=== PATIENT | female | born 1995 | race Caucasian/White ===

== ENCOUNTER 2017-06-14 10:11 | Inpatient (IN) ==
[2017-06-14] MEDS ORDERED: Famotidine 20 MG/2 ML VIAL IVP PRN (11:28)
[2017-06-14] MEDS ORDERED: Naloxone 0.4 MG/ML INJ IVP PRN (11:28)
[2017-06-14] MEDS ORDERED: Metoclopramide 10 MG/2 ML VIAL IVP PRN (11:35)
[2017-06-14] MEDS ORDERED: Ringers Solution, Lactated 1,000 ML IVC SCH (11:45)
[2017-06-14 11:53] LABS: Basophils # 0.1 K/mcL (0.0-0.2); Basophils % 0.6 %; Eosinophils # 0.2 K/mcL (0.0-0.6); Eosinophils % 1.3 %; Hematocrit 40.6 % (35.3-44.9); Hemoglobin 13.7 g/dL (11.5-15.4); Immature Granulocytes % 2.2 % (0-4); Lymphocytes % 14.7 %; Mean Corpuscular HGB Conc 33.7 g/dL (31.6-35.5); Mean Corpuscular Hemoglobin 28.2 pg (28.0-33.3); Mean Corpuscular Volume 83.7 fL (83.0-100.0); Monocytes # 1.1 K/mcL (0.0-1.3); Monocytes % 7.7 %; Neutrophils # 10.2 K/mcL (1.6-8.9); Platelet Count 239 K/mcL (140-400); Red Blood Count 4.85 M/mcL (3.82-4.97); Red Cell Distribution Width 14.8 % (11.5-14.5); Segmented Neutrophils % 73.5 %
[2017-06-14] MEDS ORDERED: Oxytocin 20 units/ LR 1000 mL 20 UNIT/1,000 ML BAG IVC SCH (12:30)
--- NOTE | 2017-06-14 12:33 | OB/GYN History & Physical ---
Date of Encounter: 06/14/17 Time of Encounter: 12:30 Assessment and Plan (1) 39 weeks gestation of Current visit: Yes Status: Acute Admit to labor and delivery for elective IOL GBS negative Start pitocin for induction 2mu/min increase by 2mu/min per policy Patient may have nubain and/or epidural for pain control when requested Consider AROM for augmentation Anticipate vaginal delivery POC per consult with Dr Aguero (2) Rubella non-immune status, antepartum Current visit: Yes Status: Acute Patient to have MMR prior to discharge to booster immunity. History of Present Illness Chief complaint: Elective IOL HPI: Ms. Limon is a 22 year old at 39 weeks and 4 days that arrives to labor and delivery for a scheduled elective IOL. She has a had a normal course with obesity as her only risk factor. Her GBS is negative. Her blood type is O+. She is Rubella non-immune and Varicella immune. She is RPR, Hepatitis B, and is HIV negative. Her Gonorrhea and Chlamydia DNA screening were negative in the December of 2016. Past Med Surg Social Fam HX - Past Medical History Medical history: no medical history Psychiatric history: no psych history - Past Surgical History Surgical History: no surgical history - Social History Smoking Status: Never smoker Smokeless Tobacco Status: No Alcohol use: none Drug use: none - Family History Mother History Unknown: Yes Adopted: No Obstetrical History - Pregnancies : 1 Para: 0 Term: 0 : 0 Ab's: 0 Livin Medications and Allergies Formula Tablet 06/14/17 [History] Zyrtec 06/14/17 [History] Allergies No Known Allergies Allergy (Verified 05/08/16 19:34) Review of System OB All systems PM: reviewed and no additional remarkable complaints except as stated Exam - Constitutional Constitutional: well developed, well nourished, no acute distress - HEENT HEENT: Normocephaly, Mucus Membranes Moist - Neck Neck exam: full ROM - Lungs Respiratory exam: CTAB - Cardiovascular Cardiovascular exam: RRR, +S1, +S2 - Abdomen Abdomen: Present: bowel sounds normal, gravid, non tender - Extremities Extremities exam: normal capillary refill, normal inspection, radial pulses palpable and symetrical Deep Tendon Reflex Grade: 2+ Normal - Vagina Vagina: Present: normal moisture - Cervix Dilation: 2 (2-3 per RN exam) Effacement: 80 Station: -2 - Uterus Uterus exam: Present: normal size, normal contour Results Result Diagrams: 06/14/17 11:23 Abnormal lab results WBC 13.9 K/mcL (4.3-11.1) H 06/14/17 11:23 RDW 14.8 % (11.5-14.5) H 06/14/17 11:23 Neutrophils # 10.2 K/mcL (1.6-8.9) H 06/14/17 11:23 All other labs normal. - VTE Reasons for not Prescribing Prophylaxis: Treatment not Indicated - Low risk for VTE
[2017-06-14] MEDS ORDERED: *HR* FentaNYL (PF) 100 MCG/2 ML VIAL EP ONE (14:33)
[2017-06-14] MEDS ORDERED: Bupivacaine-MPF 0.25% 10 ML VIAL EP ONE (14:33)
--- NOTE | 2017-06-14 14:33 | Anesthesia Evaluation PreOp ---
Date of Encounter: 06/14/17 Time of Encounter: 14:30 - Past History Planned Operation: NANCY Cardiac History: Denies any Significant Hx Pulmonary History: Denies Any Significant HX BASKET HAND BRAIDER History: Denies Any Significant HX Other Medical History: Denies Any Significant HX Anesthesia History: No Prior Anesthetic Complications (denies personal & family h/o GA complications; never had neuraxial anesthesia) : Yes Test: Positive Alcohol Use: none Drug use: none Medications and Allergies Formula Tablet 06/14/17 [History] Zyrtec 06/14/17 [History] Allergies No Known Allergies Allergy (Verified 05/08/16 19:34) - Meds/Allergy Pre-op Review Medications Reviewed: Yes Allergies Reviewed: Yes Beta Blockers on Current Med List: No Anesthesia Results - Labs 06/14/17 11:23 Anesthesia Exam 123/75, HR77, RR 14 Height: 1.8m Weight: 88.5kg NPO (# of Hours): solids >6hrs Pain Scale: 2 Pain Scale Used: Numeric (1 - 10) - HEENT Pupil (Motor): Pupils equal Mallampati: III Teeth: Normal Oral Opening: Greater than 3 - BASKET HAND BRAIDER LOC: Oriented BASKET HAND BRAIDER Motor: Normal RUE, Normal LUE, Normal RLE, Normal LLE, Normal Face BASKET HAND BRAIDER Sensory: Normal: RUE, LUE, RLE, LLE, Face - Cardiac Rhythm: Regular Murmur: None - Pulmonary Breath Sounds: bilateral Clear Respiratory Effort: Symmetrical Anesthesia Assess/Plan ASA Score: 2 Modified [place] Scale for Level of Consciousness: Cooperative, oriented, and tranquil Anesthetic Plan: Regional Autologous Blood: No Monitoring Plan: Standard Monitors Recovery Plan: Other
[2017-06-14] MEDS ORDERED: Epidural Premix (fent/bupiv) 110 ML EP SCH (14:45)
--- NOTE | 2017-06-14 16:37 | OB Labor Progress Note ---
Date of Encounter: 06/14/17 Time of Encounter: 16:35 Labor Progress Note - Subjective Subjective: Patient resting comfortably in bed. She states she can feel her contractions in her back, but they are tolerable. - Vital Signs Vital Signs: VSS - Cervix Cervix: 3-4/80/-1 mid position soft - Heart Tones Heart Tones: 140-145 with moderate variability and 15x15 accels no decels. audible arrhythmia, communication analyst notified. - [place]: Contractions every 2-3 minutes 45 seconds in length. - Interventions Interventions: AROM for large amount of clear fluid. Patient and fetus tolerated well. - Plan Plan: Continue routine labor management GBS negative Patient may have nubain and/or epidural upon request Titrate pitocin as needed for adequate contractions Anticipate vaginal delivery POC per consult with Dr Aguero.
--- NOTE | 2017-06-14 18:15 | OB Labor Progress Note ---
Date of Encounter: 06/14/17 Time of Encounter: 18:00 Labor Progress Note - Subjective Subjective: Patient started tolerating contractions well not having any significant discomfort. States beginning to feel her contractions a little bit more but not requesting any pain medication at this time - Cervix Cervix: 5/90/-2 - Heart Tones Heart Tones: heart tones 140s reactive - [place]: Contractions every 2 minutes - Plan Plan: Continue current care and anticipate normal spontaneous vaginal delivery
[2017-06-14] MEDS ORDERED: *HR* Nalbuphine 20 MG/ML AMPUL IVP PRN (19:14)
[2017-06-14] MEDS ORDERED: Bupivacaine-MPF 0.25% 10 ML VIAL ONE (19:40)
[2017-06-14] MEDS ORDERED: *HR* FentaNYL (PF) 100 MCG/2 ML VIAL ONE (19:40)
[2017-06-14] MEDS ORDERED: Epidural Premix (fent/bupiv) 110 ML EP ONE (19:41)
--- NOTE | 2017-06-14 20:37 | Anesthesia Procedures ---
Date of Encounter: 06/14/17 Time of Encounter: 19:44 Procedures: Anesthesia - Epidural/Spinal Patient ID/Chart reviewed: Yes Patient examined: Yes OB Eval: Gestational age: 39 weeks 4 days OB Eval: : 1 OB Eval: Hx Para: 0 OB Eval: Dilated at (cm): 7 OB Eval: Contractions: Non-stressed pattern Consent Obtained: Yes Supplemental Oxygen: None/Room Air Site Prep: Aseptic Technique, Sterile prep and drape, Povidone-Iodine 1% Patient position: upright Local Anesthetic: Lidocaine 1% Amount of Local Anesthetic used: 6 Touhy Needle Gauge: 18 Touhy Needle Depth (cm): 6 Catheter Depth at Skin (cm): 12 Test Dose (1.5% Lido + Epi): Volume given (mls): 5 Test Dose Result: Negative Loading Dose: 0.25% Marcaine (mls): 5 Loading Dose: Fentanyl (mcg): 100 Loading Dose Administered: Thru Catheter Infusion Med: 0.125% Bupivacaine w/ 2 mcg/ml Fentanyl Infusion Rate (mls/hr): 12 (w/ demand bolus of 4mL q20min PRN) Catheter Secured in Place: Tegaderm, Tape Interspace Used: L3-L4 Loss of Resistance (VENU): Yes Blood: No CSF: No Paresthesia: No Vitals + FHT's: please see Alma WEATHERS's documentation
--- NOTE | 2017-06-14 23:19 | OB/GYN Procedure Note ---
Delivery - Delivery Date: 06/14/17 Provider: Manuel Aguero (Delivered by Bernardo Bassett CNM with Dr Aguero present for proctoring) Intrapartum events: none Delivery induction: oxytocin Delivery augmentation: rupture of membranes Delivery monitor: external FHT, external uterine, internal uterine Anesthesia: epidural Estimated Blood Loss: 200 - Infant (s) A Delivery Date: 06/14/17 Delivery Time: 22:37 Presentation: vertex Position: DILIP Route of delivery: Gender: Male Viability: Viable Pounds: 8 Ounces: 2 Weight Gram: 3.69 kg at 1 minute: 8 at 5 mins: 9 Shoulder Dystocia: not encountered Specimens collected: cord blood Placenta: complete extraction Cord: nuchal cord, 3 umbilical vessels, nuchal reduced (Loose nuchal cord) - Repair Episiotomy: none Laceration Description: Vaginal, Labial - Complications Delivery complications: none Delivery comments: Patient progressed to complete. Began coached pushing to of viable male infant. Loose nuchal cord encountered, reduced prior to delivery of shoulders. No shoulder dystocia, and no meconium encountered. Shoulders and body delivered easily. placed on maternal abdomen, cord clamped and cut and taken to prewarmed radiant warmer to the nursery team. Apgars of 8 and 9 at 1 and 5 minutes of age respectively. Cord evulsion encountered with delivery of placenta; placenta delivered with complete extraction. 3 vessel cord present, placenta appears grossly intact upon inspection, and no retained placenta or membranes present with uterine exploration; verified by Dr Aguero. Upon inspection, right labial and right vaginal sulcus present; repaired in the usual fashion with 3-[address] Aguero present for entirety of delivery and repair for proctoring. - Disposition Mom disposition: stable in LDR [place] disposition: stable in LDR
[2017-06-15] MEDS ORDERED: Acetaminophen 325 MG TABLET PO PRN (00:19)
[2017-06-15] MEDS ORDERED: Oxytocin 20 units/ LR 1000 mL 20 UNIT/1,000 ML BAG IVC SCH (00:19)
[2017-06-15] MEDS ORDERED: *HR* HYDROcodone/Acet 5/325 mg TABLET PO PRN (00:19)
[2017-06-15] MEDS ORDERED: Ibuprofen 600 MG TABLET PO PRN (00:19)
[2017-06-15] MEDS ORDERED: Measles/Mumps/Rubella Vacc 0.5 ML VIAL SQ PRN (00:19)
[2017-06-15 08:02] LABS: Basophils # 0.1 K/mcL (0.0-0.2); Basophils % 0.5 %; Eosinophils # 0.1 K/mcL (0.0-0.6); Eosinophils % 0.5 %; Hematocrit 37.3 % (35.3-44.9); Hemoglobin 12.6 g/dL (11.5-15.4); Immature Granulocytes % 1.3 % (0-4); Lymphocytes % 11.6 %; Mean Corpuscular HGB Conc 33.8 g/dL (31.6-35.5); Mean Corpuscular Hemoglobin 28.4 pg (28.0-33.3); Mean Platelet Volume 9.9 fL (9.4-12.4); Monocytes # 1.8 K/mcL (0.0-1.3); Monocytes % 10.5 %; Platelet Count 254 K/mcL (140-400); Red Blood Count 4.44 M/mcL (3.82-4.97); Red Cell Distribution Width 14.6 % (11.5-14.5); Segmented Neutrophils % 75.6 %
[2017-06-15] MEDS: Prenatal Vit/FA 1 EACH TABLET PO SCH (08:18)
--- NOTE | 2017-06-15 08:18 | OB/GYN Progress Note ---
Date of Encounter: 06/15/17 Time of Encounter: 08:16 - Assessment and Plan (1) Vaginal delivery Current Visit: Yes Status: Acute Pt meeting milestones. Anticipate discharge home PPD#2. (2) Mother currently breast-feeding Current Visit: Yes Status: Acute Will try lanolin cream for nipple soreness. consult today. (3) Rubella non-immune status, antepartum Current Visit: Yes Status: Acute Will offer MMR prior to discharge. Subjective - Subjective Interval history: Pt reports feeling well this am. She reports her nipples are getting sore. Patient reports: appetite normal, voiding normally, pain well controlled, ambulating normally : doing well Objective - Latest Vital Signs Latest vital signs: Vital Signs Temp Pulse Pulse Resp BP Pulse Ox 06/15/17 07:58 98.4 F 95 12 115/77 97 06/15/17 04:00 100 14 06/15/17 03:50 98.3 F 104 14 119/72 97 06/15/17 02:45 98.2 F 98 100 14 113/72 98 06/15/17 01:45 16 06/15/17 01:40 98.5 F 90 16 123/79 97 Intake and Output 06/14/17 06/15/17 06/15/17 23:59 07:59 15:59 Output Total 500 / 500 Balance -500 / -500 Output: Urine 500 / 500 Other: Weight 83.6 kg Patient Weight 06/15/17 23:59 Weight 83.6 kg - Exam Lungs: bilateral: normal Chest: Normal S1, Normal S2 Extremities: Present: normal Abdomen: Present: soft, gravid Uterus: Present: firm Uterus Position: 2 Fingers Below Umbilicus - Labs Labs: Laboratory Results - last 24 hr 06/14/17 06/15/17 11:23 07:33 WBC 13.9 H 17.2 H RBC 4.85 4.44 Hgb 13.7 12.6 Hct 40.6 37.3 MCV 83.7 84.0 MCH 28.2 28.4 MCHC 33.7 33.8 RDW 14.8 H 14.6 H Plt Count 239 254 MPV 10.0 9.9 Immature Gran % 2.2 1.3 Seg Neutrophils % 73.5 75.6 Lymphocytes % 14.7 11.6 Monocytes % 7.7 10.5 Eosinophils % 1.3 0.5 Basophils % 0.6 0.5 Neutrophils # 10.2 H 13.0 H Lymphocytes # 2.0 2.0 Monocytes # 1.1 1.8 H Eosinophils # 0.2 0.1 Basophils # 0.1 0.1
[2017-06-15] MEDS ORDERED: Lanolin 7 G OINT...G. TP PRN (10:14)
[2017-06-16] MEDS: Prenatal Vit/FA 1 EACH TABLET PO SCH (07:49)
[2017-06-16 08:24] VITALS: BP 109/73
--- NOTE | 2017-06-16 09:19 | Discharge Summary ---
Date of Encounter: 06/16/17 Time of Encounter: 09:18 - Discharge Diagnosis (1) Mother currently breast-feeding Priority: Secondary Status: Acute (2) Vaginal delivery Priority: Primary Status: Acute Comments: Pt meeting all milestones, feels well. Pain well managed on po pain medication. , desires discharge. - Discharge Medications Prescriptions: Ibuprofen [Motrin] 600 mg PO Q6HR PRN #60 tab PRN Reason: Cramping Docusate [Colace] 100 mg PO BID #60 Home Medications: Formula Tablet 06/14/17 [History] Zyrtec 06/14/17 [History] Acetaminophen [Tylenol] 650 mg PO Q6HR PRN tab 06/16/17 [Rx] Breast Pump [BREAST PUMP] 1 each .ROUTE AD #1 each 06/16/17 [Rx] Docusate [Colace] 100 mg PO BID #60 06/16/17 [Rx] Ibuprofen [Motrin] 600 mg PO Q6HR PRN #60 tab 06/16/17 [Rx] Lanolin [Lansinoh] 1 appl TP TID PRN 06/16/17 [Rx] Allergies/Adverse Reactions: Allergies No Known Allergies Allergy (Verified 05/08/16 19:34) Data Procedures and tests throughout hospitalization: Laboratory Tests 06/14/17 06/15/17 11:23 07:33 WBC 13.9 H 17.2 H RBC 4.85 4.44 Hgb 13.7 12.6 Hct 40.6 37.3 MCV 83.7 84.0 MCH 28.2 28.4 MCHC 33.7 33.8 RDW 14.8 H 14.6 H Plt Count 239 254 MPV 10.0 9.9 Immature Gran % 2.2 1.3 Seg Neutrophils % 73.5 75.6 Lymphocytes % 14.7 11.6 Monocytes % 7.7 10.5 Eosinophils % 1.3 0.5 Basophils % 0.6 0.5 Neutrophils # 10.2 H 13.0 H Lymphocytes # 2.0 2.0 Monocytes # 1.1 1.8 H Eosinophils # 0.2 0.1 Basophils # 0.1 0.1 Date of admission: 06/14/17 10:11 Primary care physician: Falguni Granados Consults: 06/15/17 00:19 Consult to Web Art Director [CONS] Routine Comment: Vaginal delivery, consult needed Discharging clinician: Juliette Workman Anticipated date of discharge: 06/16/17 - Patient Status Disposition: Home, Self-Care Condition: Good Functional capacity at discharge: independent ambulation Overall status at discharge: patient is back to baseline - Discharge Instructions Follow Up With: Falguni Granados DO [Primary Care Provider] - Manuel Aguero DO [Partnered Physician] - - Diet and Activity Activity: resume usual activities as tolerated Diet: regular diet Hospital Course Reason for admission: IUP at term Delivery: Episiotomy: none Laceration: vaginal side wall, other (labial) complications: none Discharge diagnosis: IUP at term delivered baby: male Hospital course: Delivery - Delivery Date: 06/14/17 Provider: Manuel Aguero (Delivered by Bernardo Bassett CNM with Dr Aguero present for proctoring) Intrapartum events: none Delivery induction: oxytocin Delivery augmentation: rupture of membranes Delivery monitor: external FHT, external uterine, internal uterine Anesthesia: epidural Estimated Blood Loss: 200 - (s) Infant A Delivery Date: 06/14/17 Delivery Time: 22:37 Presentation: vertex Position: DILIP Route of delivery: Gender: Male Viability: Viable Pounds: 8 Ounces: 2 Weight Gram: 3.69 kg at 1 minute: 8 at 5 mins: 9 Shoulder Dystocia: not encountered Specimens collected: cord blood Placenta: complete extraction Cord: nuchal cord, 3 umbilical vessels, nuchal reduced (Loose nuchal cord) - Repair Episiotomy: none Laceration Description: Vaginal, Labial - Complications Delivery complications: none Delivery comments: Patient progressed to complete. Began coached pushing to of viable male infant. Loose nuchal cord encountered, reduced prior to delivery of shoulders. No shoulder dystocia, and no meconium encountered. Shoulders and body delivered easily. placed on maternal abdomen, cord clamped and cut and taken to prewarmed radiant warmer to the nursery team. Apgars of 8 and 9 at 1 and 5 minutes of age respectively. Cord evulsion encountered with delivery of placenta; placenta delivered with complete extraction. 3 vessel cord present, placenta appears grossly intact upon inspection, and no retained placenta or membranes present with uterine exploration; verified by Dr Aguero. Upon inspection, right labial and right vaginal sulcus present; repaired in the usual fashion with 3-[address] Aguero present for entirety of delivery and repair for proctoring. - Disposition Mom disposition: stable in and appropriate for discharge Time Attestation: Total time spent providing and/or coordinating discharge services: Time Spent: Less than 30 minutes Exam - Constitutional Vitals: Temp Pulse Resp BP Pulse Ox 97.8 F 95 16 109/73 97 06/16/17 08:00 06/16/17 08:00 06/16/17 08:00 06/16/17 08:00 06/16/17 08:00 General appearance IM: A&O X 3, pleasant - Respiratory Respiratory exam: Present: CTAB - Cardiovascular Cardiovascular exam IM: Present: RRR, +S1, +S2 - GI/Abdominal GI/Abdominal exam IM: soft - Uterine Tone: Firm Uterus Position: At Umbilicus, Midline - Neurological Exam Neurological exam: normal gait, oriented X3 - Psychiatric Additional comments: reports good mood
== END 2017-06-16 19:00 | disposition home or self-care (01) | DRG 560 ==
LOC: 1NENULAB 10:11 → 1NENUOBS 06-15 00:18
PROVIDERS: ADMIT Obstetrics & Gynecology; ATTEND Obstetrics & Gynecology

== ENCOUNTER → 2020-03-03 17:45 | Observation (INO) | END | disposition home or self-care (01) | LOC: 1NENULAB | PROVIDERS: ADMIT Obstetrics & Gynecology; ATTEND Obstetrics & Gynecology ==

== ENCOUNTER 2020-04-07 09:48 | Inpatient (IN) ==
[2020-04-07 01:31] LABS: Albumin 3.5 g/dL (3.5-5.7); Albumin/Globulin Ratio 1.3 (1.1-2.2); Bilirubin,Direct 1.1 mg/dL (0.0-0.2); Bilirubin,Total 2.1 mg/dL (0.3-1.0); Globulin 2.7 g/dL (2.4-3.5); Total Protein 6.2 g/dL (6.4-8.9)
[2020-04-07 02:01] LABS: Basophils % 0.4 %; Eosinophils # 0.1 K/mcL (0.0-0.6); Eosinophils % 1.4 %; Hematocrit 39.2 % (35.3-44.9); Hemoglobin 12.6 g/dL (11.5-15.4); Immature Granulocytes % 1.1 % (0-4); Lymphocytes # 1.6 K/mcL (0.6-4.6); Lymphocytes % 16.5 %; Mean Corpuscular HGB Conc 32.1 g/dL (31.6-35.5); Mean Corpuscular Hemoglobin 28.1 pg (28.0-33.3); Mean Corpuscular Volume 87.5 fL (83.0-100.0); Mean Platelet Volume 9.5 fL (9.4-12.4); Monocytes # 0.6 K/mcL (0.0-1.3); Monocytes % 6.3 %; Neutrophils # 7.2 K/mcL (1.6-8.9); Platelet Count 229 K/mcL (140-400); Red Blood Count 4.48 M/mcL (3.82-4.97); Red Cell Distribution Width 14.7 % (11.5-14.5); Segmented Neutrophils % 74.3 %; White Blood Count 9.7 K/mcL (4.3-11.1)
[2020-04-07] MEDS: Prenatal Vit/FA 1 EACH TABLET PO SCH (17:08)
[2020-04-08 05:58] LABS: Basophils % 0.5 %; Eosinophils # 0.1 K/mcL (0.0-0.6); Eosinophils % 1.5 %; Hematocrit 39.7 % (35.3-44.9); Immature Granulocytes % 1.8 % (0-4); Lymphocytes # 1.8 K/mcL (0.6-4.6); Mean Corpuscular HGB Conc 32.7 g/dL (31.6-35.5); Mean Corpuscular Hemoglobin 29.2 pg (28.0-33.3); Mean Corpuscular Volume 89.2 fL (83.0-100.0); Mean Platelet Volume 8.8 fL (9.4-12.4); Monocytes # 0.5 K/mcL (0.0-1.3); Monocytes % 5.6 %; Neutrophils # 6.2 K/mcL (1.6-8.9); Platelet Count 196 K/mcL (140-400); Red Blood Count 4.45 M/mcL (3.82-4.97); Red Cell Distribution Width 14.9 % (11.5-14.5); Segmented Neutrophils % 70.6 %; White Blood Count 8.8 K/mcL (4.3-11.1)
[2020-04-08 06:18] LABS: Bilirubin,Direct 0.2 mg/dL (0.0-0.2); Bilirubin,Indirect 0.6 mg/dL (0.0-1.0); Bilirubin,Total 0.8 mg/dL (0.3-1.0)
[2020-04-08] MEDS: Prenatal Vit/FA 1 EACH TABLET PO SCH (08:06)
[2020-04-08 08:16] VITALS: BP 104/69
== END 2020-04-08 09:10 | disposition home or self-care (01) | DRG 566 ==
LOC: 1NENULAB → 1NENUOBS 15:33
PROVIDERS: ADMIT Obstetrics & Gynecology; ATTEND Obstetrics & Gynecology

== ENCOUNTER → 2020-04-23 00:33 | Observation (INO) ==
[2020-04-22 23:36] LABS: Albumin 3.7 g/dL (3.5-5.7); Albumin/Globulin Ratio 1.4 (1.1-2.2); Bilirubin,Direct 0.3 mg/dL (0.0-0.2); Bilirubin,Indirect 0.7 mg/dL (0.0-1.0); Globulin 2.6 g/dL (2.4-3.5); Total Protein 6.3 g/dL (6.4-8.9)
[~2020-04-23 00:33] MED LIST: Morphine Sulfate 2 MG/ML SYRINGE IVP PRN; Ondansetron 4 MG/2 ML VIAL IVP PRN; Ringers Solution, Lactated 1,000 ML IVC ONE
== END | disposition home or self-care (01) ==
LOC: 1NENULAB
PROVIDERS: ADMIT Obstetrics & Gynecology; ATTEND Obstetrics & Gynecology

== ENCOUNTER → 2020-05-06 12:25 | Observation (INO) ==
[2020-05-06 10:39] LABS: Hematocrit 41.1 % (35.3-44.9); Hemoglobin 13.5 g/dL (11.5-15.4); Mean Corpuscular HGB Conc 32.8 g/dL (31.6-35.5); Mean Corpuscular Hemoglobin 29.2 pg (28.0-33.3); Mean Platelet Volume 9.6 fL (9.4-12.4); Platelet Count 211 K/mcL (140-400); Red Blood Count 4.62 M/mcL (3.82-4.97); Red Cell Distribution Width 14.9 % (11.5-14.5); White Blood Count 8.5 K/mcL (4.3-11.1)
== END | disposition home or self-care (01) ==
LOC: 1NENULAB
PROVIDERS: ADMIT Obstetrics & Gynecology; ATTEND Obstetrics & Gynecology

== ENCOUNTER → 2020-05-09 21:53 | Observation (INO) ==
[2020-05-09 18:19] LABS: Bacteria,Urine Few per hpf (None-Few); Mucus,Urine Few per lpf (None-Few); RBC,Urine 0-3 per hpf (0-3); Squamous Epithelial Cell,Urine Moderate per hpf (None-Few)
[2020-05-09 18:24] LABS: Bilirubin,Urine Negative (Negative); Blood,Urine Negative (Negative); Clarity,Urine Turbid (Clear); Color,Urine Light-Yellow (Yellow); Glucose,Urine (UA) Normal (Normal); Ketones,Urine 10 mg/dL (Negative); Leukocyte Esterase,Urine Moderate (Negative); Nitrite,Urine Negative (Negative); PH,Urine 6.5 pH Units (5.0-8.0); Protein,Urine Negative (Neg-Trace); Specific Gravity,Urine 1.008 (1.010-1.025); Urobilinogen,Urine Normal (Normal)
[~2020-05-09 21:53] MED LIST changes: +Famotidine 20 MG/2 ML VIAL IVP ONE; -Morphine Sulfate 2 MG/ML SYRINGE IVP PRN; +Nitrofurantoin (BID) 100 MG CAPSULE PO SCH; +Ondansetron 4 MG/2 ML VIAL IVP ONE; -Ondansetron 4 MG/2 ML VIAL IVP PRN
== END | disposition home or self-care (01) ==
LOC: 1NENULAB
PROVIDERS: ADMIT Student in an Organized Health Care Education/Training Program; ATTEND Student in an Organized Health Care Education/Training Program

== ENCOUNTER → 2020-05-19 22:57 | Observation (INO) ==
[2020-05-19 22:32] LABS: Bacteria,Urine Few per hpf (None-Few); Bilirubin,Urine Negative (Negative); Blood,Urine Negative (Negative); Calcium Oxalate Crystals,Urine Present; Clarity,Urine Turbid (Clear); Color,Urine Yellow (Yellow); Glucose,Urine (UA) Normal (Normal); Ketones,Urine 10 mg/dL (Negative); Leukocyte Esterase,Urine Large (Negative); Mucus,Urine Moderate per lpf (None-Few); Nitrite,Urine Negative (Negative); PH,Urine 6.5 pH Units (5.0-8.0); Protein,Urine 50 mg/dL (Neg-Trace); RBC,Urine 15-30 per hpf (0-3); Specific Gravity,Urine 1.028 (1.010-1.025); Squamous Epithelial Cell,Urine Moderate per hpf (None-Few); WBC,Urine 50-100 per hpf (0-3)
== END | disposition home or self-care (01) ==
LOC: 1NENULAB
PROVIDERS: ADMIT Obstetrics & Gynecology; ATTEND Obstetrics & Gynecology

== ENCOUNTER 2020-05-30 11:03 | Inpatient (IN) ==
[2020-05-30] MEDS ORDERED: Metoclopramide 10 MG/2 ML VIAL IVP PRN (11:35)
[2020-05-30] MEDS ORDERED: Ondansetron 4 MG/2 ML VIAL IVP PRN (11:35)
[2020-05-30] MEDS ORDERED: Lidocaine 1% 20 ML MDV INFILT PRN (11:35)
[2020-05-30] MEDS ORDERED: Famotidine 20 MG/2 ML VIAL IVP PRN (11:35)
[2020-05-30] MEDS ORDERED: Naloxone 0.4 MG/ML INJ IVP PRN (11:35)
[2020-05-30] MEDS ORDERED: *HR* FentaNYL (PF) 100 MCG/2 ML VIAL IVP PRN (11:35)
[2020-05-30] MEDS ORDERED: Oxytocin 20 units/ LR 1000 mL 20 UNIT/1,000 ML BAG IVC SCH (12:45)
[2020-05-30 12:48] LABS: Basophils # 0.1 K/mcL (0.0-0.2); Basophils % 0.6 %; Eosinophils # 0.1 K/mcL (0.0-0.6); Hematocrit 42.2 % (35.3-44.9); Hemoglobin 13.9 g/dL (11.5-15.4); Immature Granulocytes % 1.2 % (0-4); Lymphocytes # 1.8 K/mcL (0.6-4.6); Lymphocytes % 21.2 %; Mean Corpuscular HGB Conc 32.9 g/dL (31.6-35.5); Mean Corpuscular Hemoglobin 28.8 pg (28.0-33.3); Mean Corpuscular Volume 87.6 fL (83.0-100.0); Mean Platelet Volume 9.6 fL (9.4-12.4); Monocytes # 0.6 K/mcL (0.0-1.3); Platelet Count 201 K/mcL (140-400); Red Blood Count 4.82 M/mcL (3.82-4.97); Red Cell Distribution Width 14.8 % (11.5-14.5); White Blood Count 8.7 K/mcL (4.3-11.1)
[2020-05-30 12:51] LABS: Amphetamine Screen,Urine Negative ng/mL (Cutoff=1000); Barbiturate Screen,Urine Negative ng/mL (Cutoff=200); Benzodiazepines Screen,Urine Negative ng/mL (Cutoff=200); Cannabinoid Screen,Urine Negative ng/mL (Cutoff = 50); Cocaine Screen,Urine Negative ng/mL (Cutoff= 300); Opiate Screen,Urine Negative ng/mL (Cutoff=300); Phencyclidine Screen,Urine Negative ng/mL (Cutoff=25)
[2020-05-30] MEDS: Ringers Solution, Lactated 1,000 ML IVC SCH ×2 (12:56→17:04)
[2020-05-30] MEDS ORDERED: EPHEDrine 50 MG/ML VIAL IVP PRN (12:56)
[2020-05-30] MEDS: Epidural Premix (fent/bupiv) 110 ML EP SCH ×2 (17:07→23:58)
[2020-05-31] MEDS ORDERED: *HR* Ropivacaine/PF 0.5% 20 ML VIAL ONE (01:30)
[2020-05-31] MEDS ORDERED: Acetaminophen 325 MG TABLET PO PRN (06:06)
[2020-05-31] MEDS ORDERED: Lanolin 7 G OINT...G. TP PRN (06:06)
[2020-05-31] MEDS ORDERED: Measles/Mumps/Rubella Vacc 0.5 ML VIAL SQ PRN (06:06)
[2020-05-31] MEDS ORDERED: Benzocaine/Menthol 56 GM AEROSOL SPRAY TP PRN (06:06)
[2020-05-31] MEDS ORDERED: Oxytocin 20 units/ LR 1000 mL 20 UNIT/1,000 ML BAG IVC SCH (06:06)
[2020-05-31] MEDS: Ringers Solution, Lactated 1,000 ML IVC SCH (06:17)
[2020-05-31] MEDS: Ibuprofen 600 MG TABLET PO PRN ×2 (07:31→14:00)
[2020-05-31] MEDS: Prenatal Vit/FA 1 EACH TABLET PO SCH (07:32)
[2020-06-01] MEDS: Ibuprofen 600 MG TABLET PO PRN ×3 (03:05→19:34)
[2020-06-01 07:38] LABS: Basophils # 0.1 K/mcL (0.0-0.2); Basophils % 0.5 %; Eosinophils # 0.1 K/mcL (0.0-0.6); Eosinophils % 0.7 %; Immature Granulocytes % 1.1 % (0-4); Lymphocytes # 1.8 K/mcL (0.6-4.6); Lymphocytes % 13.8 %; Mean Corpuscular HGB Conc 32.6 g/dL (31.6-35.5); Mean Corpuscular Volume 89.2 fL (83.0-100.0); Mean Platelet Volume 9.9 fL (9.4-12.4); Monocytes # 0.8 K/mcL (0.0-1.3); Neutrophils # 10.2 K/mcL (1.6-8.9); Platelet Count 206 K/mcL (140-400); Red Blood Count 4.82 M/mcL (3.82-4.97); Red Cell Distribution Width 15.1 % (11.5-14.5); Segmented Neutrophils % 77.9 %
[2020-06-01 07:57] LABS: White Blood Count 13.1 K/mcL (4.3-11.1)
[2020-06-01] MEDS: Prenatal Vit/FA 1 EACH TABLET PO SCH (07:58)
[2020-06-01] MEDS ORDERED: *HR* OxyCODONE Immed Rel 5 MG TABLET PO PRN (22:34)
[2020-06-02] MEDS: Prenatal Vit/FA 1 EACH TABLET PO SCH (08:32)
[2020-06-02 08:54] VITALS: BP 118/71
== END 2020-06-02 15:30 | disposition home or self-care (01) | DRG 560 ==
LOC: 1NENULAB 11:03 → 1NENUOBS 05-31 05:48
PROVIDERS: ADMIT Obstetrics & Gynecology; ATTEND Obstetrics & Gynecology